=== PATIENT | female | born 1980 ===

== ENCOUNTER 2018-06-07 12:36 | Inpatient (IN) | payer OTHER ==
[2018-06-07 13:09] VITALS: BMI 28.8
[2018-06-07] MEDS ORDERED: Lactated Ringer's 1,000 ML IV ONE (14:14)
[2018-06-07] MEDS ORDERED: Lactated Ringer's 1,000 ML IV SCH (14:15)
[2018-06-07 14:44] LABS: BASO # 0.1 K/uL (0.0-0.2); BASO % 0.7 % (0.0-2.0); EOS # 0.1 K/uL (0.0-0.7); EOS % 0.7 % (0.0-4.0); HEMOGLOBIN 11.1 g/dL (11.0-16.0); LYMPH # 1.6 K/uL (1.0-4.3); LYMPH % 14.5 % (20.0-40.0); MEAN CORPUSCULAR HEMOGLOBIN 28.9 pg (27.0-31.0); MEAN CORPUSCULAR HGB CONC 33.6 g/dL (33.0-37.0); MEAN PLATELET VOLUME 8.9 fL (7.2-11.7); MONO # 0.7 K/uL (0.0-0.8); MONO % 6.2 % (0.0-10.0); NEUT # 8.6 K/uL (1.8-7.0); NEUT % 77.9 % (50.0-75.0); RBC 3.83 Mil/uL (3.80-5.20); WHITE BLOOD COUNT 11.1 K/uL (4.8-10.8)
[2018-06-07 14:50] LABS: SQUAMOUS EPITHIAL 5 /hpf (0-5); URINE BACTERIA MOD (<OCC); URINE BILIRUBIN NEGATIVE (NEGATIVE); URINE BLOOD NEGATIVE (NEGATIVE); URINE CLARITY Hazy (Clear); URINE COLOR Straw (YELLOW); URINE GLUCOSE (UA) NORMAL (Normal); URINE LEUKOCYTE ESTERASE TRACE Leu/uL (Negative); URINE PROTEIN NEGATIVE (NEGATIVE); URINE UROBILINOGEN NORMAL mg/dL (0.2-1.0)
[2018-06-07 14:58] LABS: ALB/GLOB RATIO 1.2 (1.0-2.1); ALBUMIN 3.6 g/dL (3.5-5.0); ALT/SGPT 23 U/L (9-52); AST/SGOT 19 U/L (14-36); BLOOD UREA NITROGEN 4 mg/dL (7-17); CALCIUM 9.1 mg/dl (8.6-10.4); GFR NON-AFRICAN AMERICAN > 60; URIC ACID 2.7 mg/dL (2.2-7.5)
--- NOTE | 2018-06-07 15:24 | OBHP ---
Datetime: 06/07/2018 14:06 IP Adm Impression: Term, intrauterine IP Admit Plan: Admit to unit Admit Comment, IP Provider: This is a private patient of Dr. Lisette Hart 38 year old female presents at 39 weeks referred by her Ob Dr. Hart, for concern of eleva nereida blood pressure 134/96 in the office today. Estimated delivery date is 06/09/18 by ultrasound, per patient first one performed at approx 8 weeks. Patient reports decreased movement, last feeli ng movement at 4AM today. She denies vaginal bleeding, contractions and rupture of membranes. Complai ns of fatigue and episodic palpitations. She denies headache, blurred vision, abdominal pain, nausea, vomiting, and edema. OB Hx:Patient had one previous normal vaginal delivery in 2012 with 3kg male in [place]. Denies comp lications during and following delivery. Admitted to use of epidural. 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 Denies his tory of fibroids or cysts or STIs. Last Pap smear was on 12/01/17 with negative results. PMHx: Anemia PSHx: denies Medications: vitamins, iron, folic acid, DHA and IV iron infusions (last on 05/31/18) Allergies: NKDA Social: Denies tobacco, alcohol, and illicit drugs. for 6 years. 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 Family Hx: Father- alive at 75 years old, no medical problems. Mother- alive at 65 years old, HTN. Family history of diabetes. Aunt with unspecified cancer Assessment and plan: 1. Admit to L_D 2. Monitor BP for Gestational HTN 3. Preeclampsia precautions: Labs-CBC, CMP, UA, uric acid, PT, PTT, fibrinogen, LDH 4. LR 1L bolus and LR at 125mls/hr Linnette Burr DO, PGY-1 Case was disussed with me by the resident. Cervical exam performed by me - 2cm/40%/-3 at 1405. I a gree wth the above with the following clarification: course also noted for 1) Anemia requiri ng IV iron therapy, 2 - 3 times per week. Last infusion, 05/31/18; 2) Advanced maternal age. Assessment: 38 y.o. P1011, 39w 5d, elevated BP normalized on L_D; no signs of pre-eclampsia. Categ ory [address] Hart, admit patient for delivery - proceed with cervical ripening with cer vidil, This was D/W patient and , who agree. Option for pain medication was also discussed. Alvarez arias is clinically stable. Admission plans as above, and also to include NPO, continuous EFM. Antic ipate vaginal delivery. Addendum: 1422 hours: cervidil placed in posterior vaginal vault without incident. Pelvic Type - PN: Adequate Extremities - PN: Normal Abdomen - PN: Normal Back - PN: Not Done Breast - PN: Not Done Lungs - PN: Normal Heart - PN: Normal Thyroid - PN: Not Done Neurologic - PN: Normal HEENT - PN: Normal General - PN: Normal FHR - Baseline A Provider: 135 Comments, ACOG Physical Exam: Abdomen: gravid. Soft. Non tender in all quadrants Extremities: no calf tenderness, or edema All other systems reviewed and are negative EGA AdmitDate IP: 39.5 IP Indication for Induction: Gest. HTN/PreEclampsia/Eclampsia IP Chief Complaint: Decreased movement; Signs/Symptoms Gestational HTN NICHD Variability Prov Fetus A: Moderate 6-25bpm Dilatation, Provider: 2 Effacement, Provider: 40 Genitourinary Exam: Normal DTRs - PN: Normal
[2018-06-07 15:26] LABS: PROTHROMBIN TIME 10.7 SECONDS (9.7-12.2)
--- NOTE | 2018-06-07 15:28 | OBADHP ---
Datetime: 06/07/2018 14:06 Admit Comment, IP Provider: This is a private patient of Dr. Lisette Hart 38 year old female presents at 39 weeks 2 days referred by her Ob Dr. Hart, for elevated blood pressure, 134/96 in the office today. Estimated delivery date is 06/09/18 by ultrasound, per gonsalo arias first one performed at approx 8 weeks. Patient reports decreased movement, last feeling movement at 4AM today. She denies vaginal bleeding, contractions and rupture of membranes. Complains of fatigue and episodic palpitations. She denies headache, blurred vision, abdominal pain, nausea, vo miting, and edema. OB Hx:Patient had one previous normal vaginal delivery in 2012 with 3kg male in [place]. Denies comp lications during and following delivery. 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 Denies his tory of fibroids or cysts or STIs. Last Pap smear was on 12/01/17 with negative results. PMHx: Anemia PSHx: denies Medications: vitamins, iron, folic acid, DHA and IV iron infusions (last on 05/31/18) Allergies: NKDA Social: Denies tobacco, alcohol, and illicit drugs. for 6 years. 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 Family Hx: Father- alive at 75 years old, no medical problems. Mother- alive at 65 years old, HTN. Family history of diabetes. Aunt with unspecified cancer Assessment and plan: 1. Admit to L_D 2. Monitor BP for Gestational HTN 3. Preeclampsia precautions: Labs-CBC, CMP, UA, uric acid, PT, PTT, fibrinogen, LDH 4. LR 1L bolus and LR at 125mls/hr Linnette Burr DO, PGY-1 Case was disussed with me by the resident. Cervical exam performed by me at 1405. I agree with the above with the following clarification: course noted for 1) Anemia requiring IV iron therap y, 2 - 3 times per week. Last infusion, 11/13/18; 2) Advanced maternal age. Assessment: 38 y.o. P1011, 39w 5d, elevated BP normalized on L_D; no signs of pre-eclampsia. Categ ory [address] Hart, admit for delivery - proceed with cervical ripening with cervidil. T his was D/W patient and , who agree. Option for pain medication was also discussed. Patient is clinically stable. Admission plans as above, and also to include NPO, continuous EFM, and to antici cortez vaginal delivery. Addendum: 1422 hours: cervidil placed in posterior vaginal vault without incident. Pelvic Type - PN: Adequate Extremities - PN: Normal Abdomen - PN: Normal Back - PN: Not Done Breast - PN: Not Done Lungs - PN: Normal Heart - PN: Normal Thyroid - PN: Not Done Neurologic - PN: Normal HEENT - PN: Normal General - PN: Normal Presentation-Admit: Vertex FHR - Baseline A Provider: 135 Membranes, Provider: Intact Contraction Comments Provider: irregular Comments, ACOG Physical Exam: Abdomen: gravid. Soft. Non tender in all quadrants Extremities: no calf tenderness, or edema All other systems reviewed and are negative Gestation - Est Wks by US: 38w 2d Vital Signs Provider: Reviewed; Within Normal Limits Vital Signs Provider Details: 1st BP 124/84 IP Chief Complaint: Decreased movement; Signs/Symptoms Gestational HTN NICHD Variability Prov Fetus A: Moderate 6-25bpm NICHD Accel Fetus A IP Provider: [id number] FHR Category Provider Fetus A: Category I NICHD Decel Fetus A IP Provider: None Dilatation, Provider: 2 Effacement, Provider: 40 Station, Provider: -3 Genitourinary Exam: Normal DTRs - PN: Normal EGA AdmitDate IP: 39.5 IP Adm Impression: Term, intrauterine IP Admit Plan: Admit to unit
--- NOTE | 2018-06-08 00:06 | OBPN ---
Datetime: 06/08/2018 00:01 IP Procedures: Sterile Vag Exam IP Progress Plan: Continue present management; Augmentation; Anesthesia consult; Anticipate Vaginal Delivery Membranes, Provider: Intact Contraction Comments Provider: 5-6 minutes FHR - Baseline A Provider: 130 Gestation - Est Wks by US: 39w 5d Presentation-Admit: Vertex IP Progress Note Comment: Patient received in bed: rested a bit. (+) AFM; Denies any pain of Ctx Cervical exam: as aboved Cervidil removed (per Dr. Hart) Assessment: 38 y.o. P1011, 39w 5d/ BP are wnl. Category 1 tracing. Clinically stble. Plan: 1) Pitocin 2) Epidural, upon request 3) Anticipate vaginal delivery - as per Dr. Hart Vital Signs Provider: Reviewed; Within Normal Limits FHR Category Provider Fetus A: Category I NICHD Variability Prov Fetus A: Marked >25bpm Dilatation, Provider: 3 Effacement, Provider: 40 Station, Provider: -3 NICHD Decel Fetus A IP Provider: None Datetime: 06/07/2018 14:06 Vital Signs Provider Details: 1st BP 124/84 NICHD Accel Fetus A IP Provider: [id number]
[2018-06-08] MEDS ORDERED: Oxytocin 30 UNIT 30 UNITS/500 ML BAG IV ONE ×2 (00:07→00:59)
[2018-06-08] MEDS ORDERED: Bupivacaine HCl/FentaNYL Cit 100 ML EPI ONE (03:14)
[2018-06-08] MEDS ORDERED: Oxycodone/Acetaminophen 5/325 mg Tab PO PRN ×2 (06:36)
[2018-06-08] MEDS ORDERED: Oxytocin 30 UNIT 500 ML IV ONE (06:36)
[2018-06-08] MEDS ORDERED: Benzocaine/Menthol 20%-0.5% Topical Spray (60 ml) TOP PRN (06:36)
--- NOTE | 2018-06-08 06:36 | OBDS ---
DELIVERY PERSONNEL Delivery Doctor: Lisette Hart MD Scrub Nurse: Meena Urena Bar Captain: Stephanie Sow RN Anesthesiologist: MATERNAL INFORMATION Delivery Anesthesia: Epidural Medications in Delivery: Pitocin , methergine Estimated Blood Loss (ml): 300 Placenta Cultured: Yes Maternal Complications: None RN Comments: live baby girl born via Provider Comments: pt was fully dilated and pushing. atruatmic, spotnaenous dleiveyr of head, nuchal crod x 1 reduced. atraumatic, spontaneoud delivery of anterior follwoed by posteiror shoudler follow ed by delivery of body. both oral and nasal passage of suzanne baby were bulb suctioned. umbilical cord w as clamped adn cut. baby hadned to mother on adomen. cord blood collected adn sent x 2. Spontaneous d elvery of intact placenta with membarnes. fundus fimr. Second degree perineal laceration noted adn r epaired with 2-0 chromic .good hemostais, no complications. live female apgars 9,9 weight of 6lbs 13 ounces ebl 300 ml no complications LABOR SUMMARY EDC: 06/09/2018 00:00 No. Babies in Womb: 1 Attempted: No Labor Anesthesia: Epidural LABOR INFORMATION Complete Dilatation: 06/08/2018 05:18 Cervical Ripening Agents: Cervidil removed per Oxytocin: Augmentation Group B Beta Strep: Negative Steroids Given: None Reason Steroids Not Administered: Not Applicable MEMBRANES Membranes Rupture Method: Spontaneous Rupture of Membranes: 06/08/2018 05:18 Length of Rupture (hrs): 0.98 Amniotic Fluid Color: Clear Amniotic Fluid Amount: Moderate Amniotic Fluid Odor: Normal STAGES OF LABOR Stage 2 hrs: 0 Stage 2 min: 59 Stage 3 hrs: 0 Stage 3 min: 3 VAGINAL DELIVERY Episiotomy: None Laceration Extension: Second Degree Laceration Type: Perineal Laceration Repair: Yes Initial Vag Sponge Count: 10 Final Vag Sponge Count: 10 Initial Vag Sharps Count: 0 Final Vag Sharps Count: 1 Sponge Count Correct: Yes; Vaginal Sweep Performed Sharps Count Correct: Yes BABY A INFORMATION Delivery Date/Time: 06/08/2018 06:17 Method of Delivery: Vaginal Born in Route : No : N/A Forceps: N/A Vacuum Extraction: N/A Shoulder Dystocia : No SHOULDER DYSTOCIA BABY A Delivery Date/Time: 06/08/2018 06:17 PRESENTATION/POSITION BABY A Presentation: Cephalic Cephalic Presentation: Vertex Vertex Position: Left Occipital Anterior Breech Presentation: N/A PLACENTA INFORMATION BABY A Placenta Delivery Time : 06/08/2018 06:20 Placenta Method of Delivery: Spontaneous Placenta Status: Delivered SCORES BABY A Heart Rate 1 min: >100 bpm Resp Effort 1 min: Good Cry Reflex Irritability 1 min: Cough or Sneeze or Pulls Away Muscle Tone 1 min: Active Motion Color 1 min: Body [place], Extremities Blue SCORE 1 MIN: 9 Heart Rate 5 min: >100 bpm Resp Effort 5 min: Good Cry Reflex Irritability 5 min: Cough or Sneeze or Pulls Away Muscle Tone 5 min: Active Motion Color 5 min: Body [place], Extremities Blue SCORE 5 MIN: 9 INFORMATION BABY A Gestational Age at Delivery: 39.6 Gestational Status: Term Infant Outcome : Liveborn Condition : Stable Infant Sex: Female IDENTIFICATION/MEDS BABY A ID Band Number: [id number] ID Band Location: Left Leg; Left Arm Sensor Applied: Yes Sensor Number: [id number] Sensor Location : Cord Clamp WEIGHT/LENGTH BABY A Infant Birthweight (gms): 3120 Infant Weight (lb): 6 Infant Weight (oz): 14 Length Inches: 19.50 Infant Length cms: 49.5 CORD INFORMATION BABY A No. Cord Vessels: 3 Nuchal Cord : Around Neck x1, Loose Cord Blood Taken: Yes Infant Suction: Mouth; Nose ASSESSMENT BABY A Complications: None Physical Findings at Delivery: Within Normal Limits Respirations: Appears Normal Stage Electrician/ALS Called : No Infant Care By: VINNY Jackson Transferred To: Remains with Mother
[2018-06-08] MEDS: Multiple Vitamins Tab PO SCH (09:41)
[2018-06-09 09:24] LABS: BASO # 0.1 K/uL (0.0-0.2); BASO % 0.5 % (0.0-2.0); EOS # 0.1 K/uL (0.0-0.7); EOS % 0.9 % (0.0-4.0); HEMOGLOBIN 10.9 g/dL (11.0-16.0); LYMPH % 14.5 % (20.0-40.0); MEAN CELL VOLUME 86.7 fL (81.0-99.0); MEAN CORPUSCULAR HGB CONC 33.5 g/dL (33.0-37.0); MONO # 0.7 K/uL (0.0-0.8); MONO % 4.8 % (0.0-10.0); NEUT # 10.9 K/uL (1.8-7.0); NEUT % 79.3 % (50.0-75.0); RBC 3.74 Mil/uL (3.80-5.20); WHITE BLOOD COUNT 13.7 K/uL (4.8-10.8)
[2018-06-09] MEDS: Multiple Vitamins Tab PO SCH (09:33)
--- NOTE | 2018-06-09 11:21 | OBPPN ---
Datetime: 06/09/2018 11:13 PP Pain Prov: Within normal limits PP Breasts Prov: Not Done PP Heart Prov: Normal PP Lungs Prov: Normal PP Abdomen/Uterus Prov: Normal PP Lochia Prov: Normal PP Vulva/Perineum Prov: Normal PP CVA Tenderness Prov: Normal PP Extremities Prov: Normal PP C/S Incision Prov: Not Applicable PP Progress Prov: Normal PP Comments Phys Exam Prov: Fundus firm, non-tender and below umbilicus PP Impression Prov: Normal progression PP Plan Prov: Continue present management PP Progress Note Prov: PPD # 1 S/P without complications PP H_H 10.3/32.4 C/O of cramping and advised to request Motrin for pain as needed Advance care Plan to Discharge home in AM IP PP Procedures: None Vital Signs Provider PP: Reviewed; Within Normal Limits
[2018-06-10 00:38] VITALS: O2SAT 98
[2018-06-10 08:04] VITALS: BP 101/71; PULSE 70; RESP 18; TEMP 97.6
[2018-06-10] MEDS: Multiple Vitamins Tab PO SCH (09:44)
[2018-06-10] MEDS ORDERED: Influenza Vaccine 60 MCG/0.5 ML SYR (3 yr & up) IM ONE (10:42)
--- NOTE | 2018-06-10 11:43 | OBDCSUM ---
Datetime: 06/10/2018 09:21 Discharged to, Provider: Home Follow up at, Provider: dr russ Disch Instr Activity: Normal activity; May Shower Disch Instr Diet: Regular Discharge Instructions, Provider: Routine instructions given Discharge Diagnosis, Provider: Term Delivered Discharge Time: 06/10/2018 13:00 Follow up in weeks, Provider: 4-6 weeks or prn Disch Referrals: None Contraception discussed, Prov: Yes Disch Activity Restrictions: No exercising; No lifting; No sexual activity; Nothing in vagina - Inte rcourse, tampons, douche Discharge Comment, Provider: PPD # 2 S/P without complications Breasfeeding difficulties and seen by Consult and will use pump at tie for now Electrical pump order sent to her insurance co and will be mailed to her in a couple of days.Stabl e and Satisfactory condition and recovery Will D/C home with instructions and Rx for Motrin, as per Dr. Russ Contraception after Delivery: Undecided
== END 2018-06-10 13:30 | disposition home or self-care (01) | DRG 807 ==
LOC: C.EROB 12:36 → C.4D 13:11 → C.4M 06-08 07:46
PROVIDERS: ADMIT Obstetrics & Gynecology; ATTEND Obstetrics & Gynecology
PROC: 3E0P7VZ Introduction of Hormone into Female Reproductive, Via Natural or Artificial Opening (ICD-10-PCS; 2018-06-07)
PROC: 10E0XZZ Delivery of Products of Conception, External Approach (ICD-10-PCS; principal; 2018-06-08)
PROC: 0KQM0ZZ Repair Perineum Muscle, Open Approach (ICD-10-PCS; 2018-06-08)
DX: O13.4 Gestational [pregnancy-induced] hypertension without significant proteinuria, complicating childbirth (principal); Z37.0 Single live birth; O36.8130 Decreased fetal movements, third trimester, not applicable or unspecified; O69.81X0 Labor and delivery complicated by cord around neck, without compression, not applicable or unspecified; O70.1 Second degree perineal laceration during delivery; Z3A.39 39 weeks gestation of pregnancy; Z82.49 Family history of ischemic heart disease and other diseases of the circulatory system; Z83.3 Family history of diabetes mellitus; D64.9 Anemia, unspecified; O99.02 Anemia complicating childbirth